=== PATIENT | male | born 1990 | race Caucasian/White ===

== ENCOUNTER 2017-07-01 13:12 | Inpatient (IN) | payer SELFPAY ==
[~2017-07-01] VITALS: Ht 175.3 cm; Wt 61.8 kg
--- NOTE | ~2017-07-01 | CON ---
[place], [place] REPORT OF CONSULTATION NAME: LINDSEY MOCTEZUMA I UNIT #: [id number] ROOM: [facility] DOCTOR: MARLENY SANDOVAL ED.D) BIRTHDATE: [birth year] DOS: 07/01/2017 HISTORY OF PRESENT ILLNESS: The patient is a 27-year-old male referred following an overdose of benzodiazepines, alcohol and trazodone. He is presently in the intensive care unit at [facility]. He states he is single, but does have a son with an ex-girlfriend. He states his mother is alive. He does not know his father. 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 He resigned, although he states he was probably going to be fired. He does not have a family physician. His medical history is pertinent for intellectual disability, depression, substance abuse. He states he rarely drinks alcoholic beverages, but did drink a significant amount of alcohol yesterday when he overdosed. He does smoke marijuana each day. He states he does not use benzodiazepines or trazodone on a regular basis, but did do so in an attempt to commit suicide. He stated he attempted one other time, but was helped by his grandparents. He never went to the hospital. He did go to counseling at the counseling center in [place], [place]. His therapist was Prema Ferguson. This patient was awake, alert and oriented in all three spheres. He states he is no longer feeling depressed. He did verbalize that he was hearing voices, but he states that only occurred when he drank significant amounts of alcohol and took benzodiazepines along with trazodone. He states that he would do nothing to harm himself or others. He is under a pink slip at the present time and I recommend he remains at least until tomorrow. He states he is not suicidal, but earlier today, he did indicate to one of the nurses that he was still suicidal and was hearing voices. His responses are quite varied as he talks to different staff members. If necessary and he is still suicidal tomorrow, he would most likely need referral for inpatient psychiatric care, but most likely he will deny suicidal ideation or plan due to his current statements. DIAGNOSES: 1. Major depressive disorder, recurrent. 2. Benzodiazepine overdose. 3. Alcohol intoxication. 4. Trazodone overdose. RECOMMENDATIONS: The patient should remain under a pink slip at least until tomorrow, when he should be reevaluated for suicidal ideation or plan. If he is no longer suicidal or denies suicidal ideation or plan, he will most likely be discharged home with his family. Thank you very much for this consult. [place], [place] REPORT OF CONSULTATION NAME: LINDSEY MOCTEZUMA I UNIT #: [id number] ROOM: [facility] DOCTOR: MARLENY SANDOVAL ED.D) BIRTHDATE: [birth year] MARLENY SANDOVAL ED.D CM:CONSTR:REPORT OF CONSULTATION 192 07/01/17 2322 interface
--- NOTE | ~2017-07-01 | PR ---
[place], [place] PROGRESS NOTE NAME: LINDSEY MOCTEZUMA I UNIT #: [id number] ROOM: [facility] DOCTOR: LORI ULRICH,MARLENY WRIGHT) BIRTHDATE: [birth year] DOS: 07/02/2017 SUBJECTIVE: At the present time, this patient clearly denies any suicidal ideation or plan. He is going to follow at the counseling center for outpatient counseling and is not suicidal or expressing no thoughts of harming himself or any other people. In my opinion, this patient may be discharged home with followup with the Counseling Center. Thank you very much for this consult. MARLENY SANDOVAL ED.D CM:ZAK [id number] MARLENY SANDOVAL ED.D (BOB) 07/02/17 1316 interface
[~2017-07-01 13:12] MED LIST: ALBUTEROL0.09 MG/A2 INH; AMOXICILLIN500 MG PO; BACTRIM DS 8001 TA1 PO; DICLOFENAC POTA50 MG PO; DOXYCYCLINE100 M3 PO; DOXYCYCLINE50 M2 PO; HYDROCODONE BIT1 T11 PO; LIDEX 0.05% CRE15 GM T; LOMOTIL 0.025 M1 TA1 PO; MOTRIN800 MG PO; NKHM; NORFLEX100 MG PO; PREDNICOT20 MG PO; PREDNISONE10 MG PO; PROAIR RESPICL90 MCG INH; ROBITUSSIN AC 110 ML PO; TESSALON PERLE200 MG PO; VIBRAMYCIN100 MG PO; ZITHROMAX Z PA250 MG PO; ZOFRAN ODT4 MG SL
[2017-07-01 13:18] VITALS: BP 138/42
[2017-07-01 13:43] LABS: BASO % 0.3 % (0.0-1.0); EOS # 0.1 10*3/uL (0.0-0.4); HEMATOCRIT 46.8 % (42.0-52.0); HEMOGLOBIN 16.7 g/dl (14.0-18.0); LYMPH # 1.9 10*3/uL (1.3-4.4); LYMPH % 26.5 % (27.0-41.0); MEAN CELL VOLUME 89.1 fl (80.0-94.0); MEAN CORPUSCULAR HGB 31.8 pg (27.0-31.0); MEAN CORPUSCULAR HGB CONC 35.7 g/dl (33.0-37.0); MEAN PLATELET VOLUME 10.8 fl (9.6-12.3); MONO # 0.6 10*3/uL (0.1-1.0); MONO % 7.8 % (3.0-9.0); NEUT # 4.5 10*3/uL (2.3-7.9); NEUT % 64.1 % (47.0-73.0); PLATELET COUNT AUTOMATED 182 10*3/uL (130-400); RED BLOOD COUNT 5.25 10*6/uL (4.50-5.90); RED CELL DISTRI WIDTH 11.6 % (0-14.5)
[2017-07-01 13:58] LABS: ALBUMIN 4.5 gm/dl (3.1-4.5); ALKALINE PHOSPHATASE 68 U/L (45-117); BUN 31 mg/dl (7-24); CHLORIDE 101 mmol/L (98-107); CREATININE 1.04 mg/dL (0.70-1.30); POTASSIUM 3.9 mmol/L (3.5-5.1); SGOT/AST 31 IU/L (3-35); SGPT/ALT 63 U/L (12-78); SODIUM 137 mmol/L (136-145); TOTAL PROTEIN 7.6 gm/dL (6.4-8.2)
[2017-07-01 14:00] LABS: ACETAMINOPHEN (TYLENOL) < 2.0 ug/ml (10-30); ETHYL ALCOHOL < 3.0 mg/dl (<3)
[2017-07-01 16:00] VITALS: BP 108/62
[2017-07-01 16:05] VITALS: BP 108/62
[2017-07-01 17:13] LABS: BILIRUBIN 1+ (NEGATIVE); BLOOD NEGATIVE (NEGATIVE); CLARITY CLEAR (CLEAR); COLOR YELLOW (YELLOW); GLUCOSE NEGATIVE (NEGATIVE); KETONE 1+ (NEGATIVE); LEUKO ESTERASE NEGATIVE (NEGATIVE); NITRITE NEGATIVE (NEGATIVE); PH 5.5 (5.0-9.0); SPECIFIC GRAVITY >= 1.030 (1.005-1.030); UROBILINOGEN 0.2 E.U./dl (0.2-1.0)
[2017-07-01 17:20] LABS: BACTERIA 2+; EPITHELIAL CELLS 0-2; RBC 0-2 rbc/hpf (0-2)
[2017-07-01 17:21] LABS: MUCOUS TRACE
[2017-07-01 17:22] LABS: URINE AMPHETAMINES < 1000 (1000ng/ml); URINE BARBITURATES < 200 (200ng/ml); URINE BENZODIAZEPINES > 200 (200ng/ml); URINE CANNABINOIDS (THC) > 50 (50ng/ml); URINE COCAINE < 300 (300ng/ml); URINE METHADONE < 300 (300ng/ml); URINE OPIATES < 300 (300ng/ml)
[2017-07-01 17:23] LABS: URINE PHENCYCLIDINE < 25 (25ng/ml)
[2017-07-01 20:00] VITALS: BP 107/66
[2017-07-02] VITALS: BP 114/60
[2017-07-02 04:00] VITALS: BP 93/46
[2017-07-02 06:25] LABS: ALBUMIN 3.5 gm/dl (3.1-4.5); ALKALINE PHOSPHATASE 52 U/L (45-117); BUN 28 mg/dl (7-24); CHLORIDE 109 mmol/L (98-107); CHOLESTEROL 139 mg/dL (<200); CREATININE 0.82 mg/dL (0.70-1.30); FREE T4 0.98 ng/dl (0.76-1.46); HDL CHOLESTEROL 27 mg/dl (40-60); LDL CHOLESTEROL 91 mg/dL (9-159); PHOSPHOROUS 2.5 mg/dL (2.5-4.9); POTASSIUM 3.9 mmol/L (3.5-5.1); SGOT/AST 25 IU/L (3-35); SGPT/ALT 50 U/L (12-78); SODIUM 141 mmol/L (136-145); TOTAL PROTEIN 5.9 gm/dL (6.4-8.2); TRIGLYCERIDES 103 mg/dl (<150); VLDL CHOLESTEROL 21 mg/dL (6-40)
[2017-07-02 06:28] LABS: BASO % 0.4 % (0.0-1.0); EOS # 0.2 10*3/uL (0.0-0.4); EOS % 3.5 % (1.0-4.0); HEMATOCRIT 42.1 % (42.0-52.0); LYMPH # 2.2 10*3/uL (1.3-4.4); MEAN CELL VOLUME 91.5 fl (80.0-94.0); MEAN CORPUSCULAR HGB 31.5 pg (27.0-31.0); MEAN CORPUSCULAR HGB CONC 34.4 g/dl (33.0-37.0); MEAN PLATELET VOLUME 11.2 fl (9.6-12.3); MONO # 0.6 10*3/uL (0.1-1.0); MONO % 8.3 % (3.0-9.0); NEUT # 3.8 10*3/uL (2.3-7.9); NEUT % 55.5 % (47.0-73.0); PLATELET COUNT AUTOMATED 155 10*3/uL (130-400); RED CELL DISTRI WIDTH 11.9 % (0-14.5); WHITE BLOOD COUNT 6.8 10*3/uL (4.8-10.8)
[2017-07-02 06:37] LABS: HEMOGLOBIN 14.5 g/dl (14.0-18.0)
[2017-07-02 08:00] VITALS: BP 92/43
[2017-07-02 08:13] LABS: VITAMIN D, 25-HYDROXY 20.5 ng/mL (30-100)
== END 2017-07-02 12:51 | disposition home or self-care (01) | DRG 918 ==
LOC: ED 13:12 → EDHOLD 14:35 → ICCU 14:35
PROVIDERS: Registered Nurse; Student in an Organized Health Care Education/Training Program
DX: T42.4X2A Poisoning by benzodiazepines, intentional self-harm, initial encounter (principal); F10.129 Alcohol abuse with intoxication, unspecified; F12.90 Cannabis use, unspecified, uncomplicated; F17.200 Nicotine dependence, unspecified, uncomplicated; J45.909 Unspecified asthma, uncomplicated; Z88.1 Allergy status to other antibiotic agents; Y92.098 Other place in other non-institutional residence as the place of occurrence of the external cause; T43.212A Poisoning by selective serotonin and norepinephrine reuptake inhibitors, intentional self-harm, initial encounter

== ENCOUNTER 2017-08-19 14:41 | Emergency (ER) | payer OTHER ==
[~2017-08-19] VITALS: Ht 175.2 cm; Wt 72.6 kg
[2017-08-19 14:44] VITALS: BP 127/76
[2017-08-19] MEDS ORDERED: Peridex 473 ML473 ML PO (14:48)
[2017-08-19] MEDS ORDERED: NAPROSYN500 MG PO (14:48)
[2017-08-19] MEDS ORDERED: CLINDAMYCIN150 MG PO (14:48)
[2017-08-19] MEDS ORDERED: ZOFRAN4 MG PO (14:48)
== END 2017-08-19 14:59 | disposition home or self-care (01) ==
LOC: ED 14:41
DX: K02.9 Dental caries, unspecified (principal); R03.0 Elevated blood-pressure reading, without diagnosis of hypertension; J45.909 Unspecified asthma, uncomplicated; F17.200 Nicotine dependence, unspecified, uncomplicated; Z88.1 Allergy status to other antibiotic agents

== ENCOUNTER 2017-08-27 08:37 | Emergency (ER) | payer OTHER ==
[~2017-08-27] VITALS: Ht 175.2 cm; Wt 73.9 kg
[~2017-08-27 08:37] MED LIST changes: +CLINDAMYCIN150 MG PO; +NAPROSYN500 MG PO; +Peridex 473 ML473 ML PO; +ZOFRAN4 MG PO
[2017-08-27 08:41] VITALS: BP 125/64
[2017-08-27] MEDS ORDERED: ZITHROMAX250 MG PO (09:03)
== END 2017-08-27 09:05 | disposition home or self-care (01) ==
LOC: ED 08:37
DX: J06.9 Acute upper respiratory infection, unspecified (principal); F12.10 Cannabis abuse, uncomplicated; F17.200 Nicotine dependence, unspecified, uncomplicated; J45.909 Unspecified asthma, uncomplicated; Z79.899 Other long term (current) drug therapy; Z88.1 Allergy status to other antibiotic agents

== ENCOUNTER 2017-09-23 11:31 | Emergency (ER) | payer OTHER ==
[~2017-09-23] VITALS: Ht 175.2 cm; Wt 28.6 kg
[~2017-09-23 11:31] MED LIST changes: +ZITHROMAX250 MG PO
[2017-09-23 11:39] VITALS: BP 138/78
[2017-09-23] MEDS ORDERED: PREDNISONE10 MG PO (11:42)
[2017-09-23] MEDS ORDERED: CLARITIN10 MG PO (11:42)
[2017-09-23] MEDS ORDERED: FLONASE ALLERG9.9 ML NAS (11:42)
[2017-09-23] MEDS ORDERED: ROBITUSSIN DM 105 ML PO (11:42)
== END 2017-09-23 12:11 | disposition home or self-care (01) ==
LOC: ED 11:31
DX: B34.9 Viral infection, unspecified (principal); R03.0 Elevated blood-pressure reading, without diagnosis of hypertension; F17.200 Nicotine dependence, unspecified, uncomplicated; F12.10 Cannabis abuse, uncomplicated; J45.909 Unspecified asthma, uncomplicated; Z88.1 Allergy status to other antibiotic agents

== ENCOUNTER 2018-03-09 14:14 | Emergency (ER) | payer OTHER ==
[~2018-03-09] VITALS: Ht 175.2 cm; Wt 64.4 kg
[~2018-03-09 14:14] MED LIST changes: +CLARITIN10 MG PO; +FLONASE ALLERG9.9 ML NAS; +ROBITUSSIN DM 105 ML PO
[2018-03-09 14:15] VITALS: BP 130/58
[2018-03-09] MEDS ORDERED: FLONASE ALLERG9.9 ML NAS ×2 (14:40)
[2018-03-09] MEDS ORDERED: ZYRTEC10 MG PO ×2 (14:40)
[2018-03-09] MEDS ORDERED: ZITHROMAX250 MG PO ×2 (14:40)
== END 2018-03-09 14:46 | disposition home or self-care (01) ==
LOC: ED 14:14
DX: J01.90 Acute sinusitis, unspecified (principal); F17.200 Nicotine dependence, unspecified, uncomplicated; F12.10 Cannabis abuse, uncomplicated; Z79.899 Other long term (current) drug therapy; Z88.1 Allergy status to other antibiotic agents

== ENCOUNTER 2018-05-15 19:05 | Emergency (ER) | payer OTHER ==
[~2018-05-15] VITALS: Ht 175.2 cm; Wt 70.3 kg
[~2018-05-15 19:05] MED LIST changes: +ZYRTEC10 MG PO
[2018-05-15 19:08] VITALS: BP 113/66
== END 2018-05-15 19:30 | disposition home or self-care (01) ==
LOC: ED 19:05
DX: R11.2 Nausea with vomiting, unspecified (principal); R10.817 Generalized abdominal tenderness; J45.909 Unspecified asthma, uncomplicated; F17.200 Nicotine dependence, unspecified, uncomplicated; Z88.1 Allergy status to other antibiotic agents

== ENCOUNTER 2018-05-26 15:37 | Emergency (ER) | payer OTHER ==
[~2018-05-26] VITALS: Ht 175.2 cm; Wt 65.8 kg
[2018-05-26 15:40] VITALS: BP 103/56
[2018-05-26 16:24] LABS: BASO % 0.3 % (0.0-1.0); EOS # 0.3 10*3/uL (0.0-0.4); HEMATOCRIT 45.8 % (42.0-52.0); HEMOGLOBIN 15.3 g/dl (14.0-18.0); LYMPH # 2.3 10*3/uL (1.3-4.4); LYMPH % 26.6 % (27.0-41.0); MEAN CELL VOLUME 94.2 fl (80.0-94.0); MEAN CORPUSCULAR HGB 31.5 pg (27.0-31.0); MEAN CORPUSCULAR HGB CONC 33.4 g/dl (33.0-37.0); MEAN PLATELET VOLUME 10.9 fl (9.6-12.3); MONO # 0.5 10*3/uL (0.1-1.0); MONO % 5.8 % (3.0-9.0); NEUT # 5.6 10*3/uL (2.3-7.9); NEUT % 64.1 % (47.0-73.0); PLATELET COUNT AUTOMATED 172 10*3/uL (130-400); RED BLOOD COUNT 4.86 10*6/uL (4.50-5.90); RED CELL DISTRI WIDTH 11.9 % (0-14.5); WHITE BLOOD COUNT 8.7 10*3/uL (4.8-10.8)
[2018-05-26 16:40] LABS: ALBUMIN 3.9 gm/dl (3.1-4.5); ALKALINE PHOSPHATASE 60 U/L (45-117); BUN 14 mg/dl (7-24); CHLORIDE 109 mmol/L (98-107); CREATININE 0.72 mg/dL (0.70-1.30); LIPASE 120 U/L (73-393); POTASSIUM 3.9 mmol/L (3.5-5.1); SGOT/AST 20 IU/L (3-35); SGPT/ALT 33 U/L (12-78); SODIUM 137 mmol/L (136-145)
[2018-05-26] MEDS ORDERED: ZOFRAN4 MG PO (17:25)
== END 2018-05-26 17:34 | disposition home or self-care (01) ==
LOC: ED 15:37
PROVIDERS: Nurse Practitioner Family
DX: K52.9 Noninfective gastroenteritis and colitis, unspecified (principal); R51 Headache; F17.200 Nicotine dependence, unspecified, uncomplicated; Z88.1 Allergy status to other antibiotic agents

== ENCOUNTER 2018-07-07 07:35 | Emergency (ER) | payer OTHER ==
[~2018-07-07] VITALS: Ht 175.2 cm; Wt 65.8 kg
[2018-07-07 08:21] LABS: BASO % 0.6 % (0.0-1.0); EOS # 0.3 10*3/uL (0.0-0.4); EOS % 5.6 % (1.0-4.0); HEMATOCRIT 44.3 % (42.0-52.0); LYMPH # 1.4 10*3/uL (1.3-4.4); LYMPH % 26.5 % (27.0-41.0); MEAN CELL VOLUME 94.9 fl (80.0-94.0); MEAN CORPUSCULAR HGB 32.1 pg (27.0-31.0); MEAN CORPUSCULAR HGB CONC 33.9 g/dl (33.0-37.0); MONO # 0.4 10*3/uL (0.1-1.0); MONO % 6.5 % (3.0-9.0); NEUT # 3.3 10*3/uL (2.3-7.9); NEUT % 60.4 % (47.0-73.0); PLATELET COUNT AUTOMATED 155 10*3/uL (130-400); RED BLOOD COUNT 4.67 10*6/uL (4.50-5.90); RED CELL DISTRI WIDTH 11.9 % (0-14.5); WHITE BLOOD COUNT 5.4 10*3/uL (4.8-10.8)
[2018-07-07 08:35] LABS: ALBUMIN 3.7 gm/dl (3.1-4.5); ALKALINE PHOSPHATASE 66 U/L (45-117); BUN 16 mg/dl (7-24); CHLORIDE 111 mmol/L (98-107); CREATININE 0.78 mg/dL (0.70-1.30); LIPASE 339 U/L (73-393); POTASSIUM 4.1 mmol/L (3.5-5.1); SGOT/AST 21 IU/L (3-35); SGPT/ALT 31 U/L (12-78); SODIUM 141 mmol/L (136-145); TOTAL PROTEIN 6.4 gm/dL (6.4-8.2)
[2018-07-07 09:30] VITALS: BP 132/84
[2018-07-07] MEDS ORDERED: ZOFRAN4 MG PO (10:06)
[2018-08-20] MEDS ORDERED: ZITHROMAX250 MG PO (12:51)
== END 2018-07-07 10:20 | disposition home or self-care (01) ==
LOC: ED 07:35
PROVIDERS: Emergency Medicine
DX: R11.2 Nausea with vomiting, unspecified (principal); R19.7 Diarrhea, unspecified; R10.13 Epigastric pain; J45.909 Unspecified asthma, uncomplicated; F17.200 Nicotine dependence, unspecified, uncomplicated; Z88.1 Allergy status to other antibiotic agents

== ENCOUNTER 2018-09-03 13:45 | Emergency (ER) | payer OTHER ==
[~2018-09-03] VITALS: Ht 175.2 cm; Wt 65.8 kg
--- NOTE | ~2018-09-03 | EKG ---
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
[2018-09-03 13:47] VITALS: BP 117/87
[2018-09-03 14:15] LABS: BASO % 0.4 % (0.0-1.0); EOS # 0.2 10*3/uL (0.0-0.4); EOS % 2.6 % (1.0-4.0); HEMOGLOBIN 16.3 g/dl (14.0-18.0); LYMPH # 1.7 10*3/uL (1.3-4.4); LYMPH % 22.6 % (27.0-41.0); MEAN CELL VOLUME 94.6 fl (80.0-94.0); MEAN CORPUSCULAR HGB 32.8 pg (27.0-31.0); MEAN CORPUSCULAR HGB CONC 34.7 g/dl (33.0-37.0); MEAN PLATELET VOLUME 10.9 fl (9.6-12.3); MONO # 0.4 10*3/uL (0.1-1.0); MONO % 5.2 % (3.0-9.0); NEUT % 68.9 % (47.0-73.0); PLATELET COUNT AUTOMATED 207 10*3/uL (130-400); RED BLOOD COUNT 4.97 10*6/uL (4.50-5.90); RED CELL DISTRI WIDTH 11.9 % (0-14.5); WHITE BLOOD COUNT 7.3 10*3/uL (4.8-10.8)
[2018-09-03 14:50] LABS: ALBUMIN 3.8 gm/dl (3.1-4.5); ALKALINE PHOSPHATASE 71 U/L (45-117); BUN 16 mg/dl (7-24); CHLORIDE 107 mmol/L (98-107); CREATININE 0.88 mg/dL (0.70-1.30); SGOT/AST 29 IU/L (3-35); SGPT/ALT 29 U/L (12-78); SODIUM 137 mmol/L (136-145); TOTAL PROTEIN 7.5 gm/dL (6.4-8.2)
[2018-09-03 14:52] LABS: TROPONIN I < 0.015 ng/ml (<0.045)
[2018-09-03 14:53] LABS: ACT PARTIAL THROMBO TIME 25.9 SECONDS (20.8-31.5); POTASSIUM 4.6 mmol/L (3.5-5.1)
[2018-09-03] MEDS ORDERED: ROBAXIN500 M1 PO (15:25)
[2018-09-03] MEDS ORDERED: NAPROSYN500 MG PO (15:25)
[2018-10-18] MEDS ORDERED: TYLENOL325 M1 PO (09:30)
[2018-10-18] MEDS ORDERED: MUCINEX DM 30/61 TAB PO (09:30)
== END 2018-09-03 16:12 | disposition home or self-care (01) ==
LOC: ED 13:45
PROVIDERS: Emergency Medicine
DX: S29.011A Strain of muscle and tendon of front wall of thorax, initial encounter (principal); Z88.1 Allergy status to other antibiotic agents; Z72.0 Tobacco use; Y08.89XA Assault by other specified means, initial encounter; Y93.89 Activity, other specified; Y92.89 Other specified places as the place of occurrence of the external cause; Y99.8 Other external cause status